=== PATIENT | male | born 1960 | race Caucasian/White ===

== ENCOUNTER 2019-05-08 16:39 | Emergency (ER) | payer BC, SELFPAY ==
[2019-05-08] MEDS ORDERED: METOCLOPRAMIDE 10 MG/2mL INJ ONE (17:02)
[2019-05-08] MEDS ORDERED: dexAMETHasone 10 MG/ML VIAL ONE (17:02)
[2019-05-08] MEDS ORDERED: DIPHENHYDRAMINE 50 MG/ML VIAL ONE (17:02)
[2019-05-08] MEDS ORDERED: NA CHLORIDE 0.9% 100 ML IV ONE (17:14)
[2019-05-08] MEDS ORDERED: LEVETIRACETAM 500 MG/5 ML VIAL IV ONE (17:14)
--- NOTE | 2019-05-08 17:15 | RAD REPORT ---
EXAM DESCRIPTION: CT - Head Brain Wo Cont - 05/08/2019 5:04 pm CLINICAL HISTORY: Headache COMPARISON: None. TECHNIQUE: Axial 5 mm thick images of the head were obtained without IV contrast. All CT scans are performed using dose optimization technique as appropriate and may include automated exposure control or mA/KV adjustment according to patient size. FINDINGS: A large amount of acute subarachnoid hemorrhage is present centered in the [place] a nd basilar cistern region. Aneurysm rupture is most likely. Basilar tip aneurysm favored. Small amoun t of intraventricular hemorrhage is present in the third and fourth ventricles. Early hydrocephalus i s evident. No acute cortical based infarction. No abnormal extra-axial fluid collections. Mastoid air cells and visualized portions of the paranasal sinuses are clear. No acute bony findings. Findings telephoned to the referring clinician 5:07 p.m.. IMPRESSION: Large volume of acute subarachnoid hemorrhage -grade 4. Rupture of basilar tip aneurysm favored. Early obstructive hydrocephalus.
[2019-05-08 17:27] LABS: Absolute Lymphocytes (CBC) 0.5 K/uL (0.7-4.9); Basophils % 0.1 % (0-1.3); Hematocrit 45.5 % (39.6-49.0); Lymphocytes % 5.3 % (15.3-44.8); MPV 8.6 fL (7.6-11.3); RBC Red Blood Cell Count 5.44 M/uL (4.33-5.43)
[2019-05-08 17:29] LABS: Protime INR 1.02
[2019-05-08] MEDS ORDERED: levETIRAcetam 1,000 MG in NA CHLORIDE 0.9% 100 ML IV ONE (17:30)
[2019-05-08 17:38] LABS: BUN Blood Urea Nitrogen 15 mg/dL (7-18); Bicarbonate 25 mmol/L (21-32); Glucose Level 149 mg/dL (74-106); NT PRO-BNP 144 pg/mL (<125); Potassium 3.8 mmol/L (3.5-5.1); Sodium Level 135 mmol/L (136-145); Troponin (Emerg Dept Use Only) < 0.02 ng/mL (0.0-0.045)
[2019-05-08] MEDS ORDERED: LABETALOL HCL 100 MG/20 ML ONE (17:39)
[2019-05-08] MEDS ORDERED: FENTANYL CITR 100 MCG/2 ML ONE (17:41)
[2019-05-08] MEDS ORDERED: niMODipine 30 MG CAP PO ONE (19:24)
--- NOTE | 2019-05-08 19:34 | ER ---
Nurse's Notes [facility] Name: Chico Brown II Age: 58 yrs Sex: Male : 1960 Arrival Date: 05/08/2019 Time: 17:53 Bed 8 Private MD: Diagnosis: Subarachroid hemorrhage grade 3 Presentation: 05/08 18:17 Note See paper chart for information. aa5 Assessment: 19:08 General: Appears in no apparent distress. Behavior is appropriate for age. Pain: lp1 Complains of pain in head Pain currently is 6 out of 10 on a pain scale. Neuro: Level of Consciousness is awake, obeys commands, confused, Oriented to person, place, Patient's explaining where he is and what is going on with plan of care. Cardiovascular: Patient's skin is warm and dry. Respiratory: Respiratory effort is even, unlabored. GI: No signs and/or symptoms were reported involving the gastrointestinal system. : No signs and/or symptoms were reported regarding the genitourinary system. EENT: No signs and/or symptoms were reported regarding the EENT system. Derm: Skin is pink, warm \T\ dry. Musculoskeletal: No deficits noted. 19:10 Reassessment: Patient and aware of waiting for [facility] for transfer. lp1 19:20 Reassessment: [facility] at bedside. lp1 Vital Signs: 19:08 BP 132 / 83; Pulse 96; Resp 14; Pulse Ox 98% on 2 lpm NC; lp1 ED Course: 16:43 Patient arrived in ED. aa5 17:53 Head Brain Wo Cont In Process Unspecified. iw 17:53 Head Brain Wo Cont In Process Unspecified. iw 18:17 Nicole Walden, RN is Primary Nurse. aa5 19:10 Patient has correct armband on for positive identification. Placed in gown. Bed in low lp1 position. prekindergarten teacher on. Pulse ox on. NIBP on. Administered Medications: No medications were administered Outcome: 19:30 Transferred by helicopter to [facility], Transfer form completed. lp1 X-rays sent w/ patient. 19:30 Condition: stable 19:30 Instructed on no drinking with medication. 19:33 ER care complete, transfer ordered by MD. fc 19:33 Patient left the ED. fc Signatures: Macie Bowman RN RN Leni Petersen RN RN iw Calderon, Audri, RN RN aa5 Luma Arteaga RN RN lp1 Corrections: (The following items were deleted from the chart) 18:25 17:53 Patient arrived in ED. [email or web address]
[2019-05-08 19:40] LABS: Blood Morphology Comment NOT SEEN (NOT SEEN); Platelet Estimate ADEQ; Platelets, Giant FEW; Urine White Blood Cell Casts OK
[2019-05-08 21:07] VITALS: BP 132/83; O2SAT 98
--- NOTE | 2019-05-09 07:44 | EKG ---
Test Date: 2019-05-08 Test Time: 16:57:24 Director Of Entertainment: SHLOMO MEASUREMENT RESULTS: Intervals: Rate: 95 GA: 148 QRSD: 88 QT: 360 QTc: 452 [place]: P: 55 GA: 148 QRS: 52 T: 49 INTERPRETIVE STATEMENTS: Normal sinus rhythm Nonspecific ST abnormality Abnormal ECG No previous ECG available for comparison Electronically Signed On 05-09-19 07:42:53 CDT by Nael Nguyễn
== END 2019-05-08 19:33 | disposition short-term general hospital (02) ==
LOC: ER 16:39
DX: I60.9 Nontraumatic subarachnoid hemorrhage, unspecified (principal)
CPT/HCPCS: 93005; 85025; 80048; 36415; 85610; 85730; 84484; 83880; 70450; 99285; J2765; J1200; J3010; J1100; J1953